=== PATIENT | female | born 1995 | race Caucasian/White ===

== ENCOUNTER 2022-10-02 16:34 | Emergency (ER) | payer BC, OTHER ==
[2022-10-02 18:03] VITALS: BP 138/86; PULSE 86
== END 2022-10-02 20:21 | disposition home or self-care (01) ==
LOC: JP.ED 16:34
DX: S93.602A Unspecified sprain of left foot, initial encounter (principal); S93.492A Sprain of other ligament of left ankle, initial encounter; Z88.0 Allergy status to penicillin; Z88.8 Allergy status to other drugs, medicaments and biological substances; Z91.09 Other allergy status, other than to drugs and biological substances; X50.1XXA Overexertion from prolonged static or awkward postures, initial encounter; Y93.01 Activity, walking, marching and hiking
CPT/HCPCS: 73630-26-LT; 73630-LT; 99283